=== PATIENT | female | born 1950 | race Caucasian/White ===

== ENCOUNTER 2019-03-03 20:52 | Inpatient (IN) | payer MEDICARE, MEDICAID ==
[~2019-03-03] VITALS: Ht 165.1 cm; Wt 83.9 kg
--- NOTE | 2019-03-03 20:52 | NUR ---
PT MARTINEZ BLS. TAKEN TO BED 6
--- NOTE | 2019-03-03 20:54 | NUR ---
Dr. Love examining patient.
[2019-03-03 20:55] VITALS: BP 123/49
[2019-03-03] MEDS ORDERED: NACL 0.9% 1,000 ML IV ONE ×2 (20:59→21:00)
[2019-03-03] MEDS ORDERED: LORazepam 2 MG/ML VIAL IVP ONE (21:30)
--- NOTE | 2019-03-03 21:32 | NUR ---
PT TAKEN TO CT
--- NOTE | 2019-03-03 21:34 | NUR ---
BIB BLS FAMILY MEMBER STATED PT HAS ALOC X1 DAY. PT NON VERBAL. UNABLE TO AMBULATE. AWAKE, ALERT, NOT ORIENTED. NO OBSERVED SIGNS OF PAIN. PMH: HEP C, PSYCHOSIS ALLERGIES: LATEX
[2019-03-03 21:44] LABS: BASOPHILS % (AUTO) 0.9 % (0.0-2.0); EOSINOPHILS % (AUTO) 1.5 % (0.0-4.0); HEMATOCRIT 35.5 % (36-48); HEMOGLOBIN 11.8 g/dL (12.0-16.0); LYMPHOCYTES # (AUTO) 0.8 K/uL (2.5-16.5); MEAN CORPUSCULAR HEMOGLOBIN 34 pg (27-31); MEAN CORPUSCULAR HGB CONC 33 g/dL (33-37); MEAN CORPUSCULAR VOLUME 103.1 fL (80-94); MONOCYTES # (AUTO) 0.3 K/uL (0.8-1.0); MONOCYTES % (AUTO) 11.9 % (1.7-9.3); NEUTROPHILS # (AUTO) 1.6 K/uL (1.8-7.7); NEUTROPHILS % (AUTO) 56.7 % (42.2-75.2); PLATELET COUNT (AUTO) 53 K/uL (140-450); RED BLOOD CELL COUNT(AUTO) 3.45 MIL/uL (4.20-5.40); RED CELL DISTRIBUTION WIDTH 13.8 % (11.6-13.7); WHITE BLOOD COUNT (AUTO) 2.8 K/uL (4.8-10.8)
--- NOTE | 2019-03-03 21:59 | NUR ---
PT RETURN FROM CT
[2019-03-03 22:09] LABS: ALBUMIN 2.6 g/dL (3.4-5.0); ANION GAP 10.6 (8-16); CREATININE 0.9 mg/dL (0.6-1.3); POTASSIUM 3.6 mmol/L (3.5-5.1)
[2019-03-03 22:20] LABS: PROTHROMBIN TIME 10.9 secs (10.8-13.4)
--- NOTE | 2019-03-03 22:45 | NUR ---
ATIVAN 2MG VIAL WAS PULLED FROM ER PYXIS BY MOISES RIVAS FOR SEDATION FOR CT HEAD. PT WAS ABLE TO HAVE CT HEAD SCAN COMPLETED WITHOUT NEED FOR ATIVAN. DOCUMENTED RETURN OF ATIVAN 2MG VIAL ON ER PYXIS WITH MOISES, BUT ATIVAN WAS ALREADY PULLED IN A SYRINGE, NO MED RETURNED. DOCUMENTED WASTE OF ATIVAN 2MG VIAL ON ER PYXIS WITH MOISES RIVAS.
[2019-03-03 23:03] LABS: APPEARANCE,URINE CLEAR (CLEAR); COLOR,URINE YELLOW (YELLOW)
[2019-03-03 23:04] LABS: BILIRUBIN,URINE NEGATIVE (NEGATIVE); BLOOD, URINE NEGATIVE (NEGATIVE); LEUKOCYTE ESTERASE ,URINE NEGATIVE (NEGATIVE); NITRITE, URINE NEGATIVE (NEGATIVE); UGLUCOSE NEGATIVE (NEGATIVE)
[2019-03-04] MEDS ORDERED: ONDANSETRON 4 MG/2 ML VIAL IVP PRN (00:15)
[2019-03-04] MEDS ORDERED: ACETAMINOPHEN 325 MG TAB PO PRN (00:15)
[2019-03-04] MEDS ORDERED: ZINC220C12 PO (00:24)
[2019-03-04] MEDS ORDERED: ACET-5636 PO (00:24)
[2019-03-04] MEDS ORDERED: RIFA550T PO (00:24)
[2019-03-04] MEDS ORDERED: AMPH30CE PO (00:24)
[2019-03-04] MEDS ORDERED: TRAZ-343 PO (00:24)
[2019-03-04] MEDS ORDERED: OMEP20TC10 PO (00:24)
[2019-03-04] MEDS ORDERED: FURO-572 PO (00:24)
[2019-03-04] MEDS ORDERED: ABI10 PO (00:24)
[2019-03-04] MEDS ORDERED: NADO20TA30 PO (00:24)
[2019-03-04] MEDS ORDERED: LACT10SO1 PO (00:24)
[2019-03-04] MEDS ORDERED: SPIR50TA PO (00:24)
--- NOTE | 2019-03-04 01:00 | NUR ---
RECEIVED BEDSIDE REPORT FROM ER NURSE. PATIENT IS AWAKE, ABLE TO HOLD CONVERSATION AND FOLLOW COMMANDS. PATIENT IS AOX1. ADMITTING DIAGNOSIS ALOC. RESPIRATION EVEN UNLABORED ON ROOM AIR. NO DISTRESS NOTED. SKIN IS WARM AND DRY. LEFT ELBOW SKIN TEAR NOTED, REDNESS ON THE HEELS AND SLIGHT ON THE BUTTOCKS. APPLIED VERSATILE. IV PATENT AND INTACT. HEART RATE REGULAR. S1 & S2 NOTED. LUNGS SOUNDS CLEAR ON AUSCULTATION. BOWEL SOUNDS PRESENT IN ALL 4 QUADRANT. ABDOMEN ROUND AND NON-TENDER. DENIES PAIN. MRSA SCREEN DONE. VITALS WERE TAKEN. ORIENT PATIENT TO ROOM, STAFF AND CALL LIGHT. PLAN OF CARE UP TO DATE. BED IS AT LOW POSITION. CALL LIGHT WITHIN REACH. BED ALARM IS ON. WILL CONTINUE TO MONITOR.
[2019-03-04] MEDS ORDERED: MECLIZINE 25 MG TAB PO PRN (01:10)
[2019-03-04] MEDS: NACL 0.9% 1,000 ML IV SCH ×2 (01:24→20:13)
[2019-03-04 01:28] VITALS: BP 155/63
--- NOTE | 2019-03-04 01:29 | NUR ---
Patient will be admitted to care of [facility]. Admited to MED SURG/TELE. Will go to room 108B. Belongings list completed. Report to OTILIO RIVAS.
--- NOTE | 2019-03-04 01:30 | NUR ---
UNABLE TO OBTAINED PMH FROM THE PATIENT. PATIENT IS AOX1.
--- NOTE | 2019-03-04 02:00 | NUR ---
PATIENT TRIED TO GET UP. REORIENT. BED ALARM ON. WILL CONTINUE TO MONITOR.
--- NOTE | 2019-03-04 02:27 | NUR ---
CHECKED PATIENT. PATIENT SLEEPING RESPIRATION EVEN UNLABORED ON ROOM AIR. NO DISTRESS NOTED. BED ALARM ON. WILL CONTINUE TO MONITOR.
[2019-03-04 04:00] VITALS: BP 165/67
--- NOTE | 2019-03-04 04:02 | NUR ---
VITALS WERE TAKEN. PATIENT IN STABLE CONDITION. NO DISTRESS NOTED. WILL CONTINUE TO MONITOR.
[2019-03-04 04:31] LABS: BARBITURATE, URINE NEG. ng/ml (NEG <=200); BENZODIAZEPINE, URINE NEG. ng/mL (NEG <=200); CANNABINOID, URINE POS. ng/mL (NEG <=50); COCAINE, URINE NEG. ng/mL (NEG <=300); OPIATE, URINE NEG. ng/mL (NEG <=2000); PHENCYCLIDINE SCREEN,URINE NEG. ng/mL (NEG <=25)
[2019-03-04 04:32] LABS: CHOL/HDL RATIO 3.1 (1-4.5)
[2019-03-04 05:23] LABS: MAGNESIUM 1.3 mg/dL (1.8-2.4)
[2019-03-04 06:25] LABS: PHOSPHORUS 2.8 mg/dL (2.5-4.9); THYROID STIMULATING HORMONE 11.79 uIU/mL (0.34-3.74)
--- NOTE | 2019-03-04 06:56 | NUR ---
MAG BARR GIVEN PER ORDER. WILL CONTINUE TO MONITOR.
[2019-03-04] MEDS ORDERED: MAG SULF 2000 MG/WATER PREMIX 50 ML IV ONE (07:00)
--- NOTE | 2019-03-04 07:15 | NUR ---
ENDORSED PATIENT TO DAY SHIFT NURSE. PATIENT IN STABLE CONDITION.
--- NOTE | 2019-03-04 07:15 | NUR ---
RECEIVED REPORT FROM NIGHT NURSE. PATIENT IS FULL CODE, ALLERGIES TO LATEX. PT HAS A RIGHT GERBER 22G, AMBULATES WITH ASSIST. PATIENT IS AWAKE AND IN BED, NO DISTRESS NOTED, ON ROOM AIR. WILL CONTINUE WITH PLAN OF CARE FOR THE DAY.
[2019-03-04 08:00] VITALS: BP 157/71
[2019-03-04 08:02] LABS: EOSINOPHILS % (AUTO) 2.1 % (0.0-4.0); LYMPHOCYTES # (AUTO) 0.7 K/uL (2.5-16.5); LYMPHOCYTES % (AUTO) 29.9 % (20.5-51.1); MEAN CORPUSCULAR HEMOGLOBIN 35 pg (27-31); MEAN CORPUSCULAR HGB CONC 34 g/dL (33-37); MONOCYTES # (AUTO) 0.3 K/uL (0.8-1.0); MONOCYTES % (AUTO) 13.1 % (1.7-9.3); NEUTROPHILS # (AUTO) 1.2 K/uL (1.8-7.7); NEUTROPHILS % (AUTO) 53.9 % (42.2-75.2); PLATELET COUNT (AUTO) 45 K/uL (140-450); RED BLOOD CELL COUNT(AUTO) 3.49 MIL/uL (4.20-5.40); RED CELL DISTRIBUTION WIDTH 14.2 % (11.6-13.7); WHITE BLOOD COUNT (AUTO) 2.2 K/uL (4.8-10.8)
[2019-03-04 08:12] LABS: ANION GAP 10.6 (8-16); CARBON DIOXIDE 24.8 mmol/L (21-32); CREATININE 0.8 mg/dL (0.6-1.3); POTASSIUM 3.4 mmol/L (3.5-5.1)
--- NOTE | 2019-03-04 08:41 | NUR ---
PATIENT HAS BEEN SCREENED AND CATEGORIZED MODERATE NUTRITION RISK. PATIENT WILL BE SEEN WITHIN 3-5 DAYS OF ADMISSION. 03/06/19 03/08/[address]
[2019-03-04] MEDS: NADOLOL 20 MG TAB PO SCH (09:00)
[2019-03-04] MEDS: LACTULOSE 20 GM/30 ML UDC PO SCH (09:00)
[2019-03-04] MEDS: SPIRONOLACTONE 50 MG TAB PO SCH (10:10)
[2019-03-04] MEDS: ARIPiprazole 10 MG TAB PO SCH (10:10)
[2019-03-04] MEDS: FAMOTIDINE 20 MG TAB PO SCH (10:11)
[2019-03-04] MEDS: DOCUSATE SODIUM 100 MG GELCAP PO SCH ×2 (10:11→20:36)
[2019-03-04] MEDS: PANTOPRAZOLE 40 MG TABEC PO SCH (10:12)
[2019-03-04] MEDS: FUROSEMIDE 20 MG TAB PO SCH (10:12)
--- NOTE | 2019-03-04 10:16 | NUR ---
ADMINISTERED MORNING MEDICATION, PATIENT TOLERATED WELL. NO COMPLAINTS AT THIS TIME.
[2019-03-04 10:55] LABS: PHOSPHORUS 2.6 mg/dL (2.5-4.9)
--- NOTE | 2019-03-04 11:53 | NUR ---
PER DR HODGES, PATIENT WILL BE DC TOMORROW TO A SNF. DAUGHTER FÉLIX AT BEDSIDE AND AWARE.
[2019-03-04] MEDS ORDERED: POTASSIUM CHLORIDE 20% 40 MEQ/15 ML UDC PO SCH (12:01)
--- NOTE | 2019-03-04 12:54 | NUR ---
ADMINISTERED POTASSIUM 40 MEQ PO. PATIENT IS MORE ALERT AND ORIENTED THAN AM
--- NOTE | 2019-03-04 13:20 | NUR ---
GLASSWARE SELECTOR assessment/discharge plan High Risk DC Screen Yes Name: Martina Castro Relationship: daughter Pre-Admission Living Arrangements: Lives with Other Other: Ping Castro Prior ADL Independent Current Home Health Name/Tel: N/A Current DME/02 Name/Tel: walker, no home O2 Current Hospice Name/Tel: N/A Current Dialysis Name/Tel: N/A Healthcare Decision Maker: Patient Advance Directive No Information Taught: Advance Directive Community Resources Person Taught: Children Patient Teaching Tools: Community Resources Computer Generated Print Verbal Factors Affecting Learning: None Participation Level: Active Evaluation: Gestures Understanding Verbalizes Understanding Educator: NAHEED Jovel Discipline: Case Mgt/Social Svcs Tentative Discharge Plan Summary: Patient is a 68 year old female admitted for ALOC. I met with patient and patient's daughters Martina Castro and Ping Castro. They both would like to patient to return home upon discharge. Patient's pcp is . Patient/patient's daughters do not have any difficulty filling patient's prescriptions. Patient is taking medication for depression. She is not receiving counseling/mental health services. Patient and patient's daughters do not think patient needs counseling/mental health services. Patient does not drive, her daughters help her with transportation. Patient was at a snf in [facility] for physical therapy. She does not have an Advance Directive. I provided patient and daughters with education on [employer], www.[employer].org for community resources. I verified patient's home address with Pedro, [address] [address]. They do not have any questions/concerns at this time. Plate Shear Operator and/or Supervisor Mold [employer] will follow up as needed. Signature: NAHEED Jovel Date: Mar 04, 2019
[2019-03-04] MEDS: HYDROcodone/APAP 7.5/325 MG 1 TAB PO PRN ×2 (14:41→18:56)
--- NOTE | 2019-03-04 14:47 | NUR ---
ADMINISTERED NORCO FOR KNEE PAIN. WILL RE-ASSES PAIN LEVEL.
[2019-03-04 16:00] VITALS: BP 108/50
--- NOTE | 2019-03-04 18:17 | NUR ---
PATIENT RESTING QUIETLY IN BED, NO COMPLAINTS AT THIS TIME. ALL NEEDS HAVE BEEN MET. WILL ENDORSE TO PROFESSOR OF ENGINEERING FOR CONTINUITY OF CARE.
--- NOTE | 2019-03-04 18:57 | NUR ---
ADMINISTERED NORCO FOR PAIN. WILL ENDORSE TO HEAD PORTER BAGGAGE TO RE ASSESS PAIN LEVEL
--- NOTE | 2019-03-04 19:15 | NUR ---
RECEIVED BEDSIDE REPORT FROM DAY SHIFT NURSE. NO SOB NOTED. NO DISTRESS NOTED. ALLERGIES TO LATEX. PT HAS A RIGHT GERBER 22G, AMBULATES WITH ASSIST. PATIENT IS AWAKE AND IN BED, BREATHING EVEN AND UNLABORED ON ROOM AIR. BED IN LOW POSITION, CALL LIGHT WITHIN REACH. WILL CONTINUE WITH PLAN OF CARE FOR THE DAY.
[2019-03-04 20:13] LABS: MAGNESIUM 1.3 mg/dL (1.8-2.4)
[2019-03-04] MEDS: traZODone 50 MG TAB PO SCH (20:23)
--- NOTE | 2019-03-04 20:23 | NUR ---
PT REQUESTED TRAZODONE. REPORTED TO RESIDENT GIVEN TRAZODONE MD ORDERED. PT TOLERATED WELL. HELD HAJA D/T PT HAD 2 BM TODAY.
--- NOTE | 2019-03-04 23:08 | NUR ---
PT SLEEPING IN BED. NO ACUTE DISTRESS NOTED.
[2019-03-05] VITALS: BP 129/56
--- NOTE | 2019-03-05 02:27 | NUR ---
PT SLEEPING IN BED. NO ACUTE DISTRESS NOTED.
--- NOTE | 2019-03-05 04:30 | NUR ---
PT HAD BM. NO ACUTE DISTRESS NOTED. WILL CONTINUE TO MONITOR. BED IN LOW POSITION.
[2019-03-05] MEDS: HYDROcodone/APAP 7.5/325 MG 1 TAB PO PRN ×3 (05:48→17:46)
--- NOTE | 2019-03-05 05:48 | NUR ---
PT C/O 08/05 PAIN, GIVEN NORCO MD ORDERED. PT TOLERATED WELL.
--- NOTE | 2019-03-05 07:01 | NUR ---
PT IN STABLE CONDITION, WILL ENDORSE TO DAY SHIFT NURSE FOR CONTINUOUS CARE.
[2019-03-05 07:07] LABS: HEPATITIS A ANTIBODY IGM Negative (Negative); HEPATITIS B CORE AB TOTAL Negative (Negative); HEPATITIS B SURFACE ANTIBODY Non Reactive (.); HEPATITIS B SURFACE ANTIGEN Negative (Negative)
--- NOTE | 2019-03-05 07:25 | NUR ---
RECEIVED BEDSIDE REPORT FROM FILM EDITOR SUPERVISOR NURSE. PT IS ASLEEP, NO S/S OF DISTRESS, NO SOB. PT IS ON ROOM AIR, SKIN IS INTACT ASIDE FROM A SKIN TEAR ON THE L ELBOW. IV SITE R HAND 20 G, INFUSING NS 50 ML/HR. FALL PRECAUTIONS IN PLACE. CALL LIGHT IS WITHIN REACH. WILL CONTINUE TO MONITOR.
[2019-03-05 08:00] VITALS: BP 118/71
[2019-03-05] MEDS ORDERED: MAG SULF 2000 MG/WATER PREMIX 100 ML IV ONE (08:00)
[2019-03-05] MEDS: NADOLOL 20 MG TAB PO SCH (09:00)
[2019-03-05] MEDS: DOCUSATE SODIUM 100 MG GELCAP PO SCH ×2 (10:10→21:00)
[2019-03-05] MEDS: FAMOTIDINE 20 MG TAB PO SCH (10:10)
[2019-03-05] MEDS: ARIPiprazole 10 MG TAB PO SCH (10:10)
[2019-03-05] MEDS: PANTOPRAZOLE 40 MG TABEC PO SCH (10:11)
[2019-03-05] MEDS: SPIRONOLACTONE 50 MG TAB PO SCH (10:11)
[2019-03-05] MEDS: FUROSEMIDE 20 MG TAB PO SCH (10:11)
[2019-03-05] MEDS: LACTULOSE 20 GM/30 ML UDC PO SCH ×2 (10:12→20:13)
--- NOTE | 2019-03-05 10:27 | NUR ---
AM MEDS ADMINISTERED, IV MAG INFUSING. PT TOLERATED WELL. PT REFUSED THE SCHEDULED NADOLOL, STATES "I DON'T TAKE BLOOD PRESSURE MEDICINE, I DON'T HAVE HIGH BLOOD PRESSURE". PT'S BP THIS MORNING WAS 118/71. WILL CONTINUE TO MONITOR.
[2019-03-05] MEDS ORDERED: POTASSIUM CHLORIDE 20% 40 MEQ/15 ML UDC PO ONE (11:00)
--- NOTE | 2019-03-05 11:47 | NUR ---
PT'S DAUGHTER CRYSTAL IS VISITING AT BEDSIDE.
--- NOTE | 2019-03-05 12:30 | NUR ---
PT'S IV INFILTRATED. WILL ATTEMPT TO INSERT NEW IV.
--- NOTE | 2019-03-05 12:30 | NUR ---
NEW IV INSERTED - R FA 22 G.
--- NOTE | 2019-03-05 13:54 | NUR ---
DISCHARGE PLANNING: RECEIVED AN ORDER FOR SNF FOR PT FOR 03/07/2019. MET WITH THE PATIENT AT THE BEDSIDE TO DISCUSS DC PLAN. SHE STATED SHE DOES NOT WANT TO GO TO A PENITENTIARY. SHE WANTS TO GO BACK HOME. SHE ALSO STATED THAT SHE WAS IN A PENITENTIARY IN [place] BEFORE. DR. VALENCIA MADE AWARE, SHE STATED FAMILY COULD NOT TAKE CARE OF THE PATIENT ANYMORE AND THEY ARE REQUESTING THAT THE PATIENT GO TO A PENITENTIARY. CONTACTED [facility] [employer] [facility] [phone] OPT 1, ABLE TO SPEAK TO CAIN REGARDING DC PLAN. SHE STATED LILLI IS THE CM IN CHARGE AND SHE ALSO PROVIDED ME WITH THE FAX NUMBER [phone]. ORDERS AND CLINICALS SENT. Addendum: 03/06/19 at 1150 by Hetal GEE I faxed 's home health order to [facility], fax number . Addendum: 03/06/19 at 1216 by Hetal GEE I called and spoke with Haydee from [facility] option 1, she stated [facility] will arrange home health services for patient. Haydee is aware patient will be discharged today.
[2019-03-05] MEDS ORDERED: POTASSIUM CHLORIDE 20% 40 MEQ/15 ML UDC ONE (13:59)
--- NOTE | 2019-03-05 14:00 | NUR ---
PT STATES THAT SHE TAKES LACTULOSE 4 TIMES A DAY AT HOME. SHE ALSO REFUSING TO TAKE THE POTASSIUM CHLORIDE LIQUID FORM, AND IS ASKING FOR TABLETS INSTEAD. DR VALENCIA MADE AWARE AND WILL CHANGE THESE ORDERS.
[2019-03-05] MEDS ORDERED: LACTULOSE 20 GM/30 ML UDC PO SCH ×2 (14:30→17:00)
[2019-03-05] MEDS ORDERED: POTASSIUM CHLORIDE 10 MEQ TABER PO SCH (14:45)
[2019-03-05 16:00] VITALS: BP 118/50
[2019-03-05] MEDS: NACL 0.9% 1,000 ML IV SCH (16:13)
--- NOTE | 2019-03-05 17:30 | NUR ---
PT DAUGHTER VISITING AT BEDSIDE, SHE STATES THAT PT TAKES LACTULOSE 4 TIMES PER DAY 30 G PER DOSE, AT HOME. SHE SAID THAT IF PT DOES NOT GET THIS PARTICULAR DOSE, HER "AMMONIA WILL SPIKE". DR VALENCIA MADE AWARE AND SHE WILL CHANGE THE ORDERS.
--- NOTE | 2019-03-05 19:25 | NUR ---
ENDORSED PT TO ERP PROGRAMMER NURSE IN STABLE CONDITION
--- NOTE | 2019-03-05 19:26 | NUR ---
RECD. RESTING IN BED, AWAKE, A/OX4. RESPIRATION EVEN AND UNLABORED. IV OF NS AT 50 ML/HR INFUSING, RIGHT WRIST G 22. USING HER CELLPHONE. WANTS TRAZODONE FOR SLEEP TONIGHT. PLAN OF CARE FOR THE SHIFT DISCUSSED. VERBALIZED UNDERSTANDING. DENIES PAIN 0/10.
--- NOTE | 2019-03-05 19:30 | NUR ---
Patient's Plan of Care was discussed and reviewed with INVENTORY ASSOCIATE AND DRIVER: DEBBIE
[2019-03-05] MEDS: traZODone 50 MG TAB PO SCH (20:12)
[2019-03-05] MEDS: RIFAXIMIN 550 MG TAB PO SCH (20:12)
--- NOTE | 2019-03-05 20:15 | NUR ---
DUE PO MEDICATIONS GIVEN. SNACK GIVEN REQUESTED.
--- NOTE | 2019-03-05 22:20 | NUR ---
ASSISTED OUT OF BED TO VOID IN THE BR. GAIT UNSTEADY. NEEDS ASSISTANCE WHEN AMBULATING.
[2019-03-06] VITALS: BP 108/60
--- NOTE | 2019-03-06 | NUR ---
SLEEPING COMFORTABLY IN BED.
[2019-03-06] MEDS: HYDROcodone/APAP 7.5/325 MG 1 TAB PO PRN ×2 (01:13→09:38)
[2019-03-06] MEDS: NACL 0.9% 1,000 ML IV SCH (01:15)
--- NOTE | 2019-03-06 04:00 | NUR ---
WOKE UP, ATE A SNACK AND WENT BACK TO SLEEP AFTER EATING.
--- NOTE | 2019-03-06 07:00 | NUR ---
CONDITION REMAIN STABLE. WILL ENDORSE TO AM SHIFT NURSE FOR CONTINUITY OF CARE.
--- NOTE | 2019-03-06 07:22 | NUR ---
RECEIVED BEDSIDE REPORT FROM DIRECTOR OF CLAIMS NURSE FOR CONTINUITY OF CARE. PT AWAKE AND RESTING ON BED AT THIS TIME. PT IS AAOX3 TO NAME, PLACE AND TIME. RESPIRATION EVEN AND UNLABORED ON RA. DENIED PAIN, SOB, AND DIZZINESS AT THIS TIME. NO SIGNS OF DISTRESS NOTED. IV ON RFA 22G, CLEAN AND INTACT, INFUSING PER MD ORDER. SKIN TEAR ON L ELBOW NOTE. PT IS ABLE TO AMBULATE WITH ASSIST. PT IS CONTINENT. DISCUSSED PLAN OF CARE WITH PT AND PT VERBALIZED OK. SAFETY MEASURES IN PLACE. BED IN LOW POSITION AND CALL LIGHT WITHIN REACH.
[2019-03-06 08:00] VITALS: BP 113/45
[2019-03-06] MEDS: SPIRONOLACTONE 50 MG TAB PO SCH (09:00)
[2019-03-06] MEDS: NADOLOL 20 MG TAB PO SCH (09:00)
[2019-03-06] MEDS: FAMOTIDINE 20 MG TAB PO SCH (09:32)
[2019-03-06] MEDS: ARIPiprazole 10 MG TAB PO SCH (09:32)
[2019-03-06] MEDS: DOCUSATE SODIUM 100 MG GELCAP PO SCH (09:33)
[2019-03-06] MEDS: LACTULOSE 20 GM/30 ML UDC PO SCH (09:33)
[2019-03-06] MEDS: PANTOPRAZOLE 40 MG TABEC PO SCH (09:34)
[2019-03-06] MEDS: FUROSEMIDE 20 MG TAB PO SCH (09:34)
[2019-03-06] MEDS: RIFAXIMIN 550 MG TAB PO SCH (09:35)
--- NOTE | 2019-03-06 09:39 | NUR ---
CHECKED BP PRIOR TO MED ADMINISTER, BP 118/59 PULSE 72. PT REFUSED ALL BP MEDS AND STATED "I DON'T HAVE NO PROBLEM WITH MY BLOOD PRESSURE AND I NEVER TAKE ANY BLOOD PRESSURE MEDS." ADMINISTERED THE REST OF AM SCHEDULED MEDS, MEDS EDUCATION PROVIDED AND PT TOLERATED WELL. PT COMPLAINED SHE HAS 5/10 PAIN ON HER KNEE AFTER PT SESSION, MEDICATED WITH PRN PAIN MED. PT AWAKE AND RESTING ON BED AT THIS TIME. NO SIGNS OF DISTRESS NOTED. SAFETY MEASURES IN PLACE.
--- NOTE | 2019-03-06 10:05 | NUR ---
PER PATIENT, HER DAUGHTER WILL BE PICK HER UP AROUND 1100. ATTEMPTED TO NOTIFY DR HODGES, BUT HE IS NOT IN OFFICE. INFORMED DR CABELLO AND DR CABELLO WILL WORK ON THE DC DOCUMENT. EXPLAINED TO PT THAT IS WORKING ON HER DC DOCUMENT AND PT WAS AWARE.
[2019-03-06 10:55] LABS: MAGNESIUM 1.8 mg/dL (1.8-2.4); PHOSPHORUS 2.7 mg/dL (2.5-4.9)
--- NOTE | 2019-03-06 11:30 | NUR ---
PT'S DAUGHTER FÉLIX ARRIVED AT BEDSIDE AND ASSISTING PT TO CHANGE INTO HER OWN CLOTHES.
--- NOTE | 2019-03-06 11:40 | NUR ---
DISCHARGE INSTRUCTION PROVIDED TO PT AND PT'S DAUGHTER AT BEDSIDE. EDUCATED PT ON FOLLOW UP WITH MD, MEDICATIONS REGIMENS, SIDE EFFECTS, AND DISEASE MANAGEMENT. ANSWERED ALL PT'S QUESTIONS AND PT WAS AWARE TO FOLLOW UP WITH MD AFTER DC. REMOVED IV, CANNULA INTACT AND NO BLEEDING AT IV SITE. REMOVED ALL ARM BANDS. SKIN TEAR ON L ELBOW AND WOUND PICTURE TAKEN. NO PRESCRIPTION PROVIDED TO PATIENT. PT REFUSED ALL VACCINATIONS AND EDUCATION PROVIDED. PT CHECKED ALL THE CABINETS AND TOOK ALL HER BELONGINGS HOME. THERMAL TECHNICIAN WHEEL CHAIR PT TO THE FRONT LOBBY. PT IS GOING TO DC HOME ACCOMPANY BY DAUGHTER. PT IS IN STABLE CONDITION.
[2019-03-06 11:42] LABS: ANION GAP 13.1 (8-16); CARBON DIOXIDE 24.1 mmol/L (21-32); CREATININE 1.1 mg/dL (0.6-1.3); POTASSIUM 5.2 mmol/L (3.5-5.1)
[2019-03-06 12:56] LABS: BASOPHILS % (AUTO) 0.8 % (0.0-2.0); EOSINOPHILS # (AUTO) 0.1 K/uL (0-0.4); EOSINOPHILS % (AUTO) 1.6 % (0.0-4.0); HEMATOCRIT 34.5 % (36-48); HEMOGLOBIN 11.3 g/dL (12.0-16.0); LYMPHOCYTES # (AUTO) 0.8 K/uL (2.5-16.5); LYMPHOCYTES % (AUTO) 24.5 % (20.5-51.1); MEAN CORPUSCULAR HEMOGLOBIN 34 pg (27-31); MEAN CORPUSCULAR HGB CONC 33 g/dL (33-37); MEAN CORPUSCULAR VOLUME 105.1 fL (80-94); MONOCYTES # (AUTO) 0.4 K/uL (0.8-1.0); MONOCYTES % (AUTO) 13.8 % (1.7-9.3); NEUTROPHILS # (AUTO) 1.9 K/uL (1.8-7.7); NEUTROPHILS % (AUTO) 59.3 % (42.2-75.2); PLATELET COUNT (AUTO) 48 K/uL (140-450); RED BLOOD CELL COUNT(AUTO) 3.28 MIL/uL (4.20-5.40); RED CELL DISTRIBUTION WIDTH 14.4 % (11.6-13.7); WHITE BLOOD COUNT (AUTO) 3.3 K/uL (4.8-10.8)
== END 2019-03-06 11:40 | disposition home or self-care (01) | DRG 917 ==
LOC: MED 20:52 → MTU 03-04 00:16
PROVIDERS: ADMIT General Practice; ATTEND General Practice
DX: T40.7X1A Poisoning by cannabis (derivatives), accidental (unintentional), initial encounter (principal); E43 Unspecified severe protein-calorie malnutrition; G92 Toxic encephalopathy; F02.81 Dementia in other diseases classified elsewhere, unspecified severity, with behavioral disturbance; D61.818 Other pancytopenia; G30.9 Alzheimer's disease, unspecified; B19.20 Unspecified viral hepatitis C without hepatic coma; F15.90 Other stimulant use, unspecified, uncomplicated; K74.60 Unspecified cirrhosis of liver; Z91.041 Radiographic dye allergy status; Z79.899 Other long term (current) drug therapy; Z68.30 Body mass index [BMI] 30.0-30.9, adult; Y92.89 Other specified places as the place of occurrence of the external cause
CPT/HCPCS: 36415; 70450; 71045; 76705; 80048; 80053; 80305; 81003; 82140; 83036; 83605; 83690; 83735; 83880; 84100; 84443; 84484; 85025; 85610; 85730; 86704; 86706; 86708; 86709; 86803; 87040; 87081; 87340; 93880; 96360; 97110; 97112; 97116; 97161-GP; 97530; 99285; J2060; J3475; J7030; Q0092